=== PATIENT | male | born 1955 | race Caucasian/White ===

== ENCOUNTER 2017-03-14 14:21 | Outpatient (CLI) | payer OTHER ==
[~2017-03-14 14:21] MED LIST: AMBIEN5 MG PO; CEFACLOR ER500 MG PO; CEFADROXIL500 MG PO; DIOVAN320 MG PO; LITHIUM CARBON300 M1 PO; PERCOCET 10-3251 TAB PO; PERCOCET 5/321 UDTAB PO; WELLBUTRIN XL300 MG PO; XANAX XR1 MG PO; XARELTO10 MG PO; ZANAFLEX2 M1 PO
== END 2017-03-14 15:37 | disposition home or self-care (01) ==
LOC: LAB 14:21
DX: M46.06 Spinal enthesopathy, lumbar region (principal)

== ENCOUNTER 2017-03-14 15:09 | Outpatient (CLI) | payer OTHER | END 2017-03-14 15:19 | disposition home or self-care (01) | LOC: RAD 15:09 | DX: M46.06 Spinal enthesopathy, lumbar region (principal) ==

== ENCOUNTER 2017-06-09 14:34 | Outpatient (CLI) | payer OTHER | END 2017-06-09 17:13 | disposition home or self-care (01) | LOC: NUCLEAR 14:34 | DX: M48.00 Spinal stenosis, site unspecified (principal); M46.24 Osteomyelitis of vertebra, thoracic region | CPT/HCPCS: 78315; A9503 ==

== ENCOUNTER → 2017-07-12 | Outpatient (CLI) | payer OTHER | END | disposition home or self-care (01) | LOC: MRI 12:52 | DX: M46.27 Osteomyelitis of vertebra, lumbosacral region (principal) | CPT/HCPCS: 72148 ==

== ENCOUNTER 2017-07-13 14:16 | Outpatient (CLI) | payer OTHER | END 2017-07-13 14:29 | disposition home or self-care (01) | LOC: NUCLEAR 14:16 | DX: M46.26 Osteomyelitis of vertebra, lumbar region (principal) | CPT/HCPCS: 78802; A9556 ==

== ENCOUNTER 2017-12-02 08:47 | Outpatient (CLI) | payer OTHER | END 2017-12-02 09:48 | disposition home or self-care (01) | LOC: NUCLEAR 08:47 | DX: I73.89 Other specified peripheral vascular diseases (principal); I87.2 Venous insufficiency (chronic) (peripheral) ==

== ENCOUNTER 2017-12-02 09:55 | Outpatient (CLI) | payer OTHER | END 2017-12-02 10:03 | disposition home or self-care (01) | LOC: RAD 09:55 | DX: M79.672 Pain in left foot (principal) ==

== ENCOUNTER 2018-09-06 09:24 | Outpatient (CLI) | payer OTHER | END 2018-09-06 09:26 | disposition home or self-care (01) | LOC: NUCLEAR 09:24 | DX: M86.00 Acute hematogenous osteomyelitis, unspecified site (principal) | CPT/HCPCS: 78315; 78802; A9503; A9556 ==

== ENCOUNTER 2018-09-27 13:45 | Outpatient (CLI) | payer OTHER | END 2018-09-27 14:01 | disposition home or self-care (01) | LOC: MRI 13:45 | DX: M50.022 Cervical disc disorder at C5-C6 level with myelopathy (principal); M48.062 Spinal stenosis, lumbar region with neurogenic claudication; M96.1 Postlaminectomy syndrome, not elsewhere classified | CPT/HCPCS: 72141 ==

== ENCOUNTER 2018-10-16 10:29 | Outpatient (CLI) | payer OTHER | END 2018-10-16 10:33 | disposition home or self-care (01) | LOC: NUCLEAR 10:29 | DX: I11.9 Hypertensive heart disease without heart failure (principal) ==

== ENCOUNTER 2019-05-21 10:42 | Outpatient (CLI) | payer OTHER | END 2019-05-21 10:45 | disposition home or self-care (01) | LOC: SONOGRAMA 10:42 | DX: N40.1 Benign prostatic hyperplasia with lower urinary tract symptoms (principal) ==

== ENCOUNTER 2019-08-20 09:34 | Outpatient (CLI) | payer OTHER | END 2019-08-20 09:37 | disposition home or self-care (01) | LOC: NUCLEAR 09:34 | PROVIDERS: ATTEND Urology | DX: C61 Malignant neoplasm of prostate (principal) | CPT/HCPCS: 78306; A9503 ==

== ENCOUNTER → 2020-12-02 | Outpatient (CLI) | payer OTHER | END | disposition home or self-care (01) | LOC: SONOGRAMA 05-18 12:57 → MAMO-SONO 05-18 13:15 → MRI 14:04 | PROVIDERS: ATTEND General Practice | DX: M48.07 Spinal stenosis, lumbosacral region (principal); M54.59 Other low back pain; M54.16 Radiculopathy, lumbar region | CPT/HCPCS: 72148 ==

== ENCOUNTER 2020-12-29 10:20 | Outpatient (CLI) | payer OTHER | END 2020-12-29 10:21 | disposition home or self-care (01) | LOC: NUCLEAR 10:20 | PROVIDERS: ATTEND Orthopaedic Surgery Orthopaedic Surgery of the Spine | DX: M54.16 Radiculopathy, lumbar region (principal) | CPT/HCPCS: 78315; A9503 ==

== ENCOUNTER 2021-01-02 10:15 | Outpatient (CLI) | payer OTHER | END 2021-01-02 10:17 | disposition home or self-care (01) | LOC: MAMO-SONO 10:15 → SONOGRAMA 10:15 | PROVIDERS: ATTEND Internal Medicine | DX: K80.80 Other cholelithiasis without obstruction (principal); R10.84 Generalized abdominal pain; R10.2 Pelvic and perineal pain; N18.32 Chronic kidney disease, stage 3b ==

== ENCOUNTER → 2021-01-26 | Outpatient (CLI) | payer OTHER | END | disposition home or self-care (01) | LOC: MRI 13:42 | PROVIDERS: ATTEND Orthopaedic Surgery | DX: M19.012 Primary osteoarthritis, left shoulder (principal); M25.512 Pain in left shoulder | CPT/HCPCS: 73221 ==

== ENCOUNTER 2021-05-12 14:15 | Outpatient (CLI) | payer OTHER | END 2021-05-12 14:19 | disposition home or self-care (01) | LOC: TOM 14:15 | DX: M19.012 Primary osteoarthritis, left shoulder (principal); M75.122 Complete rotator cuff tear or rupture of left shoulder, not specified as traumatic ==

== ENCOUNTER → 2021-11-13 12:06 | Outpatient (CLI) | payer OTHER | END | disposition home or self-care (01) | LOC: TOM 12:06 | DX: C61 Malignant neoplasm of prostate (principal) ==